=== PATIENT | male | born 1985 | race Caucasian/White ===

== ENCOUNTER 2021-09-25 21:57 | Emergency (ER) | payer OTHER ==
[2021-09-26 01:56] LABS: HEMOGLOBIN 15.1 gm/dl (14.0-17.5); RED BLOOD COUNT 4.87 M/UL (4.20-5.50); WHITE BLOOD COUNT 8.5 K/UL (4.5-11.0)
[2021-09-26 02:17] LABS: BUN/CREATININE RATIO 15 (0-10)
== END 2021-09-26 01:58 | disposition left against medical advice (07) ==
LOC: ER1 21:57
PROVIDERS: Physician Assistant Medical
DX: R05.9 Cough, unspecified (principal); R11.0 Nausea; R51.9 Headache, unspecified; F17.210 Nicotine dependence, cigarettes, uncomplicated; Z20.822 Contact with and (suspected) exposure to COVID-19; Z87.442 Personal history of urinary calculi; Z88.8 Allergy status to other drugs, medicaments and biological substances
CPT/HCPCS: 0240U; 71045; 80053; 83605; 83690; 85025; 87081; 87880; 99283